=== PATIENT | female | born 1945 | race African-American/Black ===

== ENCOUNTER 2017-10-25 15:25 | Emergency (ER) | payer OTHER ==
--- NOTE | 2017-10-25 16:37 | RAD REPORT ---
EXAM DESCRIPTION: RAD - Ankle Right 3 View - 10/25/2017 4:31 pm CLINICAL HISTORY: Right ankle pain status post fall FINDINGS: No fracture or dislocation is seen. Small calcaneal spur is present
--- NOTE | 2017-10-25 16:48 | RAD REPORT ---
EXAM DESCRIPTION: RAD - Knee Right 3 View - 10/25/2017 4:36 pm CLINICAL HISTORY: Right knee pain FINDINGS: No fracture or dislocation is seen. A large spur extends off of the anterior superior aspect of the patella.
--- NOTE | 2017-10-25 17:15 | EDPHYS ---
Physician Documentation [facility] Name: Sherri Milton Age: 72 yrs Sex: Female : 1945 Arrival Date: 10/25/2017 Time: 15:28 Bed 6 Private MD: Terri Mane ED Physician Chavez Gordon HPI: 10/25 17:11 This 72 yrs old Black Female presents to ER via Ambulatory with complaints of ankle rn pain, Knee Pain. 17:11 The patient presents with an injury, pain. rn 17:11 The complaints affect the right knee and anterior aspect of right ankle. Onset: The rn symptoms/episode began/occurred 1 week(s) ago. Severity of symptoms: At their worst the symptoms were moderate, in the emergency department the symptoms have improved. The patient has not experienced similar symptoms in the past. Reports twisting injury to right knee/ankle, has slowly improved but not entirely back to normal, ambulatory. . Historical: - Allergies: 15:55 No Known Allergies; aj - Home Meds: 15:55 Benicar oral oral [Active]; aj - PMHx: 15:55 Hypertension; aj - PSHx: 15:55 None; aj - Immunization history:: Adult Immunizations up to date. - Social history:: Smoking status: Patient/guardian denies using tobacco. - Ebola Screening: : Patient negative for fever greater than or equal to 101.5 degrees Fahrenheit, and additional compatible Ebola Virus Disease symptoms Patient denies exposure to infectious person Patient denies travel to an Ebola-affected area in the 21 days before illness onset No symptoms or risks identified at this time. - Family history:: not pertinent. - Hospitalizations: : No recent hospitalization is reported. ROS: 17:11 Constitutional: Negative for fever, chills, and weight loss, MS/Extremity: + right knee rn and ankle injury Neuro: Negative for headache, weakness, numbness, tingling, and seizure. Exam: 17:11 Constitutional: This is a well developed, well nourished patient who is awake, alert, rn and in no acute distress. MS/ Extremity: Pulses equal, no cyanosis. Neurovascular intact. + mild right knee effusion, no erythema/warmth Vital Signs: 15:55 BP 147 / 81; Pulse 85; Resp 16; Temp 98.5; Pulse Ox 99% on R/A; Weight 80.74 kg; Height 5 ft. 4 in. (162.56 cm); 15:55 Body Mass Index 30.55 (80.74 kg, 162.56 cm) MDM: 17:00 Patient medically screened. rn 17:11 Differential diagnosis: closed fracture, tendonitis. Data reviewed: vital signs, nurses rn notes, radiologic studies, plain films, and as a result, I will discharge patient. Counseling: I had a detailed discussion with the patient and/or guardian regarding: the historical points, exam findings, and any diagnostic results supporting the discharge/admit diagnosis, radiology results, the need for outpatient follow up, to return to the emergency department if symptoms worsen or persist or if there are any questions or concerns that arise at home. Special discussion: I discussed with the patient/guardian in detail that at this point there is no indication for admission to the hospital. It is understood, however, that if the symptoms persist or worsen the patient needs to return immediately for re-evaluation. Further emergent ED testing is not indicated at this point in time. I discussed with the patient/guardian in detail the need to arrange with the PCP or specialist further outpatient testing, MRI, Based on the history and exam findings, there is no indication for further emergent testing or inpatient evaluation. I discussed with the patient/guardian the need to see the orthopedic surgeon for further evaluation of the symptoms. 10/25 15:56 Order name: XRAY Knee RIGHT 3 view; Complete Time: 17:01 10/25 15:56 Order name: XRAY Ankle RIGHT 3 view; Complete Time: 17:01 Administered Medications: No medications were administered Disposition: 10/25/17 17:14 Discharged to Home. Impression: Sprain of other specified parts of right knee, Sprain of ankle. - Condition is Stable. - Discharge Instructions: Ankle Sprain, Knee Sprain. - Medication Reconciliation Form, Thank You Letter, Antibiotic Education, Prescription Opioid Use form. - Follow up: Private Physician; When: As needed; Reason: Recheck today's complaints, Re-evaluation by your physician. - Problem is new. - Symptoms have improved. Signatures: Dispatcher [employer] EDElena Anne RN RN aj Nieto, Roman, MD MD rn Baxter, Heather, RN RN Corrections: (The following items were deleted from the chart) 17:24 17:14 10/25/2017 17:14 Discharged to Home. Impression: Sprain of other specified parts hb of right knee; Sprain of ankle. Condition is Stable. Forms are Medication Reconciliation Form, Thank You Letter, Antibiotic Education, Prescription Opioid Use. Follow up: Private Physician; When: As needed; Reason: Recheck today's complaints, Re-evaluation by your physician. Problem is new. Symptoms have improved. rn
--- NOTE | 2017-10-25 17:15 | ER ---
Nurse's Notes [facility] Name: Sherri Milton Age: 72 yrs Sex: Female : 1945 Arrival Date: 10/25/2017 Time: 15:28 Bed 6 Private MD: Terri Mane Diagnosis: Sprain of other specified parts of right knee;Sprain of ankle Presentation: 10/25 15:53 Presenting complaint: Patient states: Right knee, ankle, and foot pain that started 1 aj week ago after "twisting something.". Transition of care: patient was not received from another setting of care. Onset of symptoms was October 20, 2017. Risk Assessment: Do you want to hurt yourself or someone else? Patient reports no desire to harm self or others. Care prior to arrival: None. 15:53 Method Of Arrival: Ambulatory 15:53 Acuity: MACK 4 aj Triage Assessment: 15:55 General: Appears in no apparent distress. comfortable, Behavior is calm, cooperative, aj appropriate for age. Pain: Complains of pain in right knee, anterior aspect of right ankle and dorsum of right foot. Neuro: Level of Consciousness is awake, alert, obeys commands, Oriented to person, place, time, situation, Appropriate for age. Respiratory: Airway is patent Respiratory effort is even, unlabored, Respiratory pattern is regular, symmetrical. Derm: Skin is intact, is healthy with good turgor, Skin is pink, warm \\T\\ dry. normal. Musculoskeletal: Reports pain in right knee, anterior aspect of right ankle and dorsum of right foot. Historical: - Allergies: 15:55 No Known Allergies; aj - Home Meds: 15:55 Benicar oral oral [Active]; aj - PMHx: 15:55 Hypertension; aj - PSHx: 15:55 None; aj - Immunization history:: Adult Immunizations up to date. - Social history:: Smoking status: Patient/guardian denies using tobacco. - Ebola Screening: : Patient negative for fever greater than or equal to 101.5 degrees Fahrenheit, and additional compatible Ebola Virus Disease symptoms Patient denies exposure to infectious person Patient denies travel to an Ebola-affected area in the 21 days before illness onset No symptoms or risks identified at this time. - Family history:: not pertinent. - Hospitalizations: : No recent hospitalization is reported. Screenin:00 Abuse screen: Denies threats or abuse. Denies injuries from another. Nutritional hb screening: No deficits noted. Tuberculosis screening: No symptoms or risk factors identified. Fall Risk None identified. Assessment: 16:00 General: Appears in no apparent distress. Behavior is calm, cooperative. Pain: Pain hb currently is 4 out of 10 on a pain scale. Neuro: Level of Consciousness is awake, alert, obeys commands, Oriented to person, place, time, situation. Cardiovascular: Capillary refill < 3 seconds Patient's skin is warm and dry. Respiratory: Airway is patent Trachea midline Respiratory effort is even, unlabored, Respiratory pattern is regular, symmetrical. Musculoskeletal: Reports pain in right knee, right ankle. 17:00 Reassessment: Patient appears in no apparent distress at this time. No changes from hb previously documented assessment. Patient and/or family updated on plan of care and expected duration. Pain level reassessed. Patient is alert, oriented x 3, equal unlabored respirations, skin warm/dry/pink. Vital Signs: 15:55 BP 147 / 81; Pulse 85; Resp 16; Temp 98.5; Pulse Ox 99% on R/A; Weight 80.74 kg; Height aj 5 ft. 4 in. (162.56 cm); 15:55 Body Mass Index 30.55 (80.74 kg, 162.56 cm) aj ED Course: 15:28 Patient arrived in ED. sb2 15:30 Terri Mane MD is Private Physician. sb2 15:54 Triage completed. aj 15:55 Arm band placed on left wrist. Patient placed in waiting room, Patient notified of wait aj time. X-ray ordered. 16:00 Patient has correct armband on for positive identification. Bed in low position. Call hb light in reach. Side rails up X 1. 16:26 X-ray completed. Portable x-ray completed in exam room. Patient tolerated procedure ml well. 16:28 XRAY Knee RIGHT 3 view In Process Unspecified. EDMS 16:28 XRAY Ankle RIGHT 3 view In Process Unspecified. EDMS 17:00 Chavez Gordon MD is Attending Physician. rn 17:20 Joselyn Atkinson RN is Primary Nurse. hb 17:22 No provider procedures requiring assistance completed. Patient did not have IV access hb during this emergency room visit. Administered Medications: No medications were administered Outcome: 17:14 Discharge ordered by . rn 17:22 Discharged to home ambulatory. 17:22 Condition: stable 17:22 Discharge instructions given to patient, Instructed on discharge instructions, follow up and referral plans. medication usage, Demonstrated understanding of instructions, follow-up care, medications. 17:24 Patient left the ED. Signatures: Dispatcher [employer] EDElena Anne RN RN aj Lopez, Melissa ml Nieto, Roman, MD MD rn Baxter, Heather, RN RN hb Billeau, Sheri sb2
== END 2017-10-25 17:24 | disposition home or self-care (01) ==
LOC: ER 15:25
DX: S93.401A Sprain of unspecified ligament of right ankle, initial encounter (principal); S83.8X1A Sprain of other specified parts of right knee, initial encounter; I10 Essential (primary) hypertension; X50.1XXA Overexertion from prolonged static or awkward postures, initial encounter; Y93.9 Activity, unspecified; Y92.9 Unspecified place or not applicable; Y99.9 Unspecified external cause status
CPT/HCPCS: 99283